=== PATIENT | female | born 2000 | race Caucasian/White ===

== ENCOUNTER 2024-03-15 21:04 | Emergency (ER) | payer SELFPAY ==
[~2024-03-15] VITALS: Ht 165.1 cm; Wt 61.0 kg
[2024-03-15 21:26] VITALS: BP 115/51; PULSE 80; RESP 18; TEMP 99; O2SAT 98
[2024-03-15] MEDS ORDERED: DIPH25TA62 MT (22:46)
[2024-03-15] MEDS ORDERED: CEPH500T MT (22:46)
[2024-03-15] MEDS ORDERED: P20 MT (22:46)
== END 2024-03-15 23:20 | disposition home or self-care (01) ==
LOC: ER 21:04
DX: L03.213 Periorbital cellulitis (principal); R21 Rash and other nonspecific skin eruption
CPT/HCPCS: 99281; 99283